=== PATIENT | female | born 1950 | race Hispanic/Latino ===

== ENCOUNTER 2018-10-25 20:53 | Emergency (ER) | payer MEDICARE ==
--- NOTE | 2018-10-25 21:37 | Emergency Department Report ---
Blank Doc - Documentation Documentation: This is a 68 y.o. female that presents for medical clearance for admission into [facility]. Went to PCP today and asked them to discontinue percocet and Ambien. They suggest she go to inpatient clinic for detox. Patient states when she got there they told her to follow up in the ER for medical clearance before they admit. Ordered labs.
[2018-10-25 22:03] LABS: Basophils % (Auto) 0.4 % (0.0-1.8); Eosinophils % (Auto) 0.1 % (0.0-4.3); Hematocrit 34.4 % (30.3-42.9); Hemoglobin 11.6 gm/dl (10.1-14.3); Lymphocytes # (Auto) 3.1 K/mm3 (1.2-5.4); Lymphocytes % (Auto) 34.7 % (13.4-35.0); Mean Corpuscular HGB Conc 34 % (30-34); Mean Corpuscular Volume 89 fl (79-97); Monocytes # (Auto) 0.9 K/mm3 (0.0-0.8); Monocytes % (Auto) 9.9 % (0.0-7.3); Platelet Count 298 K/mm3 (140-440); Red Blood Count 3.86 M/mm3 (3.65-5.03); Red Cell Distribution Width 14.6 % (13.2-15.2)
[2018-10-25 22:17] LABS: BUN/Creatinine Ratio 19; Blood Urea Nitrogen 15 mg/dL (7-17); Calcium 9.2 mg/dL (8.4-10.2); Hemolysis Index 8
[2018-10-26] MEDS ORDERED: ZOFRAN IV ONE (00:09)
[2018-10-26] MEDS ORDERED: NACL 0.9% 1000 ML 1,000 ML IV ONE (00:09)
--- NOTE | 2018-10-26 00:13 | Emergency Department Report ---
ED Medical Clearance HPI - General Chief complaint: Medical Clearance Stated complaint: MEDICAL CLEARANCE Time Seen by Provider: 10/25/18 21:31 Source: patient Mode of arrival: Ambulatory - History of Present Illness Initial comments: Patient is 68 years old female with history of auto immune disease. Patient brought to the emergency room accompanied by her daughter for medical clearance for admission to either [facility] for drug detoxification. Patient stated that she's been taking Percocet and Ativan and Ambien for the last 10 years and she wanted to get off it. She denied any history of headache, chest pain or shortness of breath. MD Complaint: medical clearance request Allergies/Adverse reactions: Allergies Allergy/AdvReac Type Severity Reaction Status Date / Time levofloxacin [From Levaquin] Allergy Unknown Verified 10/25/18 21:12 tetracycline Allergy Unknown Verified 10/25/18 21:12 morphine AdvReac Shortness Verified 10/26/18 01:56 of Breath ED Review of Systems ROS: Stated complaint: MEDICAL CLEARANCE Other details as noted in HPI Comment: All other systems reviewed and negative Constitutional: denies: chills, fever Respiratory: denies: cough, shortness of breath, SOB with exertion, wheezing Cardiovascular: denies: chest pain, palpitations Gastrointestinal: nausea. denies: abdominal pain, vomiting, diarrhea, const ipation, hematemesis Musculoskeletal: denies: back pain Neurological: denies: headache, weakness, numbness, paresthesias, confusion ED Past Medical Hx - Past Medical History Previous Medical History?: Yes Hx Arthritis: Yes (rhemuatoid) Hx Psychiatric Treatment: Yes (depression, anxiety) Additional medical history: Lupus, hypothyroid, Sjogrens - Surgical History Past Surgical History?: Yes Hx Cholecystectomy: Yes Additional Surgical History: gastric bypass, hysterectomy - Social History Smoking Status: Never Smoker Substance Use Type: Prescribed ED Physical Exam - General Limitations: No Limitations General appearance: alert, in no apparent distress - Head Head exam: Present: atraumatic, normocephalic, normal inspection - Eye Eye exam: Present: normal appearance, PERRL - ENT ENT exam: Present: normal exam, normal orophraynx, mucous membranes moist - Neck Neck exam: Present: normal inspection, full ROM. Absent: tenderness, meningismus, lymphadenopathy, thyromegaly - Respiratory Respiratory exam: Present: normal lung sounds bilaterally. Absent: respiratory distress, wheezes, rales, rhonchi, stridor, chest wall tenderness, accessory muscle use, decreased breath sounds, prolonged expiratory - Cardiovascular Cardiovascular Exam: Present: regular rate, normal rhythm, normal heart sounds - GI/Abdominal GI/Abdominal exam: Present: soft, normal bowel sounds. Absent: distended, tenderness, guarding, rebound, rigid, organomegaly, mass, bruit, pulsatile mass, hernia - Extremities Exam Extremities exam: Present: normal inspection, full ROM, normal capillary refill. Absent: tenderness, pedal edema, calf tenderness - Back Exam Back exam: Present: normal inspection, full ROM. Absent: CVA tenderness (R), CVA tenderness (L) - Neurological Exam Neurological exam: Present: alert, oriented X3, CN II-XII intact, normal gait - Psychiatric Psychiatric exam: Present: depressed. Absent: anxious, flat affect, manic, homicidal ideation, suicidal ideation - Skin Skin exam: Present: warm, intact, normal color ED Course Vital Signs 10/25/18 10/26/18 10/26/18 21:31 00:17 01:00 Temperature 98.3 F Pulse Rate 79 66 66 Respiratory 18 18 18 Rate Blood Pressure 163/104 Blood Pressure 159/87 144/85 [Left] O2 Sat by Pulse 98 98 98 Oximetry ED Medical Decision Making - Lab Data Result diagrams: 10/25/18 21:42 10/25/18 21:42 - Medical Decision Making Patient is 68 years old female with history of auto immune disease. Patient brought to the emergency room accompanied by her daughter for medical clearance for admission to either [facility] drug detoxification. Patient stated that she's been taking Percocet and Ativan and Ambien for the last 10 years and she wanted to get off it. She denied any history of headache, chest pain or shortness of breath. Labs reviewed and is unremarkable. Patient is medically clear to be admitted to inpatient psychiatric facility. ED Disposition Clinical Impression: Opioid dependence, Benzodiazepine dependence, Desire for detoxification Disposition: DC-01 TO HOME OR SELFCARE Is pt being admited?: No Condition: Stable Instructions: Opioid Dependence (ED), Benzodiazepine Abuse (ED)
[2018-10-26 02:18] LABS: Bilirubin,Urine Negative (Negative); Blood,Urine Negative (Negative); Color,Urine STRAW (Yellow)
[2018-10-26 02:19] LABS: Protein,Urine <15 mg/dL mg/dL (Negative); Urobilinogen,Urine < 0.2 mg/dL (<2.0)
[2018-10-26 02:20] LABS: Mucus,Urine 1+ /HPF
[2018-10-26 02:22] LABS: Amphetamine Screen,Urine PRESUMPTIVE NEGATIVE; Benzodiazepines Screen,Urine PRESUMPTIVE NEGATIVE; Cannabinoid Screen,Urine PRESUMPTIVE NEGATIVE; Cocaine Screen,Urine PRESUMPTIVE NEGATIVE; Methadone Screen,Urine PRESUMPTIVE NEGATIVE; Opiate Screen,Urine PRESUMPTIVE NEGATIVE
[2018-10-26 10:26] VITALS: BP 117/70
== END 2018-10-26 11:00 | disposition home or self-care (01) ==
LOC: ED 20:53
DX: F11.20 Opioid dependence, uncomplicated (principal); F13.20 Sedative, hypnotic or anxiolytic dependence, uncomplicated; M06.9 Rheumatoid arthritis, unspecified; Z90.49 Acquired absence of other specified parts of digestive tract; Z90.710 Acquired absence of both cervix and uterus; Z88.6 Allergy status to analgesic agent; Z88.1 Allergy status to other antibiotic agents
CPT/HCPCS: 36415; 80048; 80307; 81001; 85025; 96374; 99284; G0480; J2405; J7030; 80320; 96361